=== PATIENT | male | born 1980 | race Caucasian/White ===

== ENCOUNTER 2019-01-13 20:39 | Emergency (ER) | payer OTHER ==
[2019-01-13] MEDS ORDERED: MORPHINE SULFATE 10 MG/ML SOL IV ONE (21:00)
[2019-01-13] MEDS ORDERED: TAMSULOSIN HYDROCHLORIDE 0.4 MG CAP PO SCH (21:00)
[2019-01-13] MEDS ORDERED: KETOROLAC TROMETHAMINE 30 MG/ML SOL IV ONE (21:00)
[2019-01-13 21:09] VITALS: RESP 12; TEMP 98.6
[2019-01-13] MEDS ORDERED: KETOROLAC TROMETHAMINE 30 MG/ML SOL ONE (21:12)
[2019-01-13] MEDS ORDERED: MORPHINE SULFATE 10 MG/ML SOL ONE (21:12)
[2019-01-13] MEDS ORDERED: TAMSULOSIN HYDROCHLORIDE 0.4 MG CAP ONE (21:12)
[2019-01-13 21:24] LABS: BASOPHILS % (AUTO) 1 % (0-3); EOSINOPHILS % (AUTO) 4 % (0-9); HEMATOCRIT 45 % (39-53); HEMOGLOBIN 15.2 gm/dl (13.5-17.7); LYMPHOCYTES % (AUTO) 27.3 % (10-50); MEAN CORPUSCULAR HEMOGLOBIN 29.3 pg (27.0-32.0); MEAN CORPUSCULAR HGB CONC 33.5 gm/dl (32.0-36.0); MEAN CORPUSCULAR VOLUME 87 fL (80-100); MONOCYTES % (AUTO) 9.6 % (0-12)
[2019-01-13 21:36] LABS: APPEARANCE,URINE Cloudy; BILIRUBIN,URINE 1+ (NEGATIVE); COLOR,URINE Yellow; GLUCOSE, URINE (UA) NEGATIVE (NEGATIVE); KETONES,URINE TRACE (NEGATIVE); LEUKOCYTE ESTERASE ,URINE NEGATIVE (NEGATIVE); NITRATE,URINE NEGATIVE (NEGATIVE); OCCULT BLOOD,URINE 3+ (NEG-TRACE); PH,URINE 6.5; UROBILINOGEN,URINE 0.2 (0.2-1.0 EU)
[2019-01-13 21:39] LABS: ALBUMIN 3.7 gm/dl (3.4-5.0); BILIRUBIN,TOTAL 0.2 mg/dl (0.2-1.0); CALCIUM 8.4 mg/dl (8.5-10.1); CREATININE 0.98 mg/dl (0.80-1.30); POTASSIUM 3.7 mMol/L (3.5-5.1); TOTAL PROTEIN 7.2 gm/dl (6.4-8.2)
[2019-01-13 21:40] LABS: CARBON DIOXIDE 30.8 mEq/L (21-32)
[2019-01-13 21:41] LABS: ICTOTEST,URINE NEGATIVE (NEGATIVE)
[2019-01-13 21:48] LABS: BACTERIA 1+ (< 1+); CRYSTALS NEGATIVE (0-3 AVE/HPF); EPITHELIAL CELLS 0-2 (SQUAMOUS); RBC,URINE 40-50 (0-3AV/HPF); WBC,URINE 0-3 (0-5AV/HPF)
[2019-01-13] MEDS ORDERED: APAP/HYDROCODONE 1 EACH TABLET PO ONE (22:05)
[2019-01-13] MEDS ORDERED: APAP/HYDROCODONE 1 EACH TABLET ONE (22:11)
[2019-01-13 22:29] VITALS: BP 122/81; PULSE 72; O2SAT 96
== END 2019-01-13 22:20 | disposition home or self-care (01) | DRG 392 ==
LOC: ED 20:39
DX: R10.9 Unspecified abdominal pain (principal); N20.0 Calculus of kidney; R31.9 Hematuria, unspecified
CPT/HCPCS: 36415; 80053; 81001; 85025; 96374; 96375; 99283; 99291; J1885; J2270; A9270-GY

== ENCOUNTER 2019-01-22 22:56 | Emergency (ER) | payer OTHER ==
[2019-01-22] MEDS ORDERED: SODIUM CHLORIDE 0.9% 1000ML 1,000 ML IV ONE (23:10)
[2019-01-22] MEDS ORDERED: ONDANSETRON HCL 4 MG/2 ML SOL IV ONE (23:10)
[2019-01-22] MEDS ORDERED: HYDROMORPHONE HCL 2 MG/ML SOL IV ONE (23:11)
[2019-01-22] MEDS ORDERED: HYDROMORPHONE 1 MG/ML SYRINGE ONE (23:16)
[2019-01-22] MEDS ORDERED: ONDANSETRON HCL 4 MG/2 ML SOL ONE (23:16)
[2019-01-22 23:22] LABS: BASOPHILS % (AUTO) 1 % (0-3); EOSINOPHILS % (AUTO) 8 % (0-9); HEMATOCRIT 44 % (39-53); HEMOGLOBIN 14.9 gm/dl (13.5-17.7); LYMPHOCYTES % (AUTO) 35.7 % (10-50); MEAN CORPUSCULAR HEMOGLOBIN 29.4 pg (27.0-32.0); MEAN CORPUSCULAR VOLUME 87 fL (80-100); MONOCYTES % (AUTO) 9.6 % (0-12); NEUTROPHILS % (AUTO) 45.7 % (37-80)
[2019-01-22 23:26] LABS: ALBUMIN 3.4 gm/dl (3.4-5.0); BILIRUBIN,TOTAL 0.2 mg/dl (0.2-1.0); CREATININE 1.04 mg/dl (0.80-1.30); TOTAL PROTEIN 6.8 gm/dl (6.4-8.2)
[2019-01-22 23:29] VITALS: RESP 16; TEMP 97.2
[2019-01-22 23:31] LABS: CALCIUM 8.4 mg/dl (8.5-10.1); CARBON DIOXIDE 29.1 mEq/L (21-32); POTASSIUM 3.7 mMol/L (3.5-5.1)
[2019-01-23 00:27] LABS: APPEARANCE,URINE Clear; BILIRUBIN,URINE NEGATIVE (NEGATIVE); COLOR,URINE Orange; GLUCOSE, URINE (UA) TRACE (NEGATIVE); KETONES,URINE TRACE (NEGATIVE); LEUKOCYTE ESTERASE ,URINE NEGATIVE (NEGATIVE); NITRATE,URINE POSITIVE (NEGATIVE); OCCULT BLOOD,URINE TRACE LYSED (NEG-TRACE)
[2019-01-23] MEDS ORDERED: KETOROLAC TROMETHAMINE 30 MG/ML SOL IV ONE (00:34)
[2019-01-23] MEDS ORDERED: KETOROLAC TROMETHAMINE 30 MG/ML SOL ONE (00:35)
[2019-01-23 00:37] LABS: BACTERIA TRACE (< 1+); CRYSTALS NEGATIVE (0-3 AVE/HPF); EPITHELIAL CELLS 0-1 (SQUAMOUS); WBC,URINE 0-2 (0-5AV/HPF)
[2019-01-23] MEDS ORDERED: CEPHALEXIN 250 MG/5 ML BOTTLE PO ONE (01:21)
[2019-01-23] MEDS ORDERED: CEPHALEXIN 250 MG/5 ML BOTTLE ONE (01:22)
[2019-01-23 01:48] VITALS: BP 120/82; PULSE 60; O2SAT 95
== END 2019-01-23 01:36 | disposition home or self-care (01) | DRG 694 ==
LOC: ED 22:56
DX: N20.0 Calculus of kidney (principal); N20.1 Calculus of ureter
CPT/HCPCS: 74176; 80053; 81001; 85025; 96365; 96374; 96375; 99283; 99284; J1885; J2405; A9270-GY; J1170

== ENCOUNTER 2019-02-12 22:29 | Emergency (ER) | payer OTHER ==
[2019-02-12 22:32] VITALS: TEMP 98.9
[2019-02-12] MEDS ORDERED: KETOROLAC TROMETHAMINE 30 MG/ML SOL IV ONE (22:55)
[2019-02-12] MEDS ORDERED: FENTANYL 100MCG/2ML SOL IV ONE (22:55)
[2019-02-12] MEDS ORDERED: ONDANSETRON HCL 4 MG/2 ML SOL IV ONE (23:17)
[2019-02-12] MEDS ORDERED: ONDANSETRON HCL 4 MG/2 ML SOL ONE (23:18)
[2019-02-12] MEDS ORDERED: KETOROLAC TROMETHAMINE 30 MG/ML SOL ONE (23:18)
[2019-02-12 23:19] LABS: BASOPHILS % (AUTO) 1 % (0-3); EOSINOPHILS % (AUTO) 8 % (0-9); HEMATOCRIT 47 % (39-53); HEMOGLOBIN 15.4 gm/dl (13.5-17.7); LYMPHOCYTES % (AUTO) 33.5 % (10-50); MEAN CORPUSCULAR HEMOGLOBIN 28.4 pg (27.0-32.0); MEAN CORPUSCULAR HGB CONC 32.8 gm/dl (32.0-36.0); MEAN CORPUSCULAR VOLUME 87 fL (80-100); MONOCYTES % (AUTO) 7.7 % (0-12); NEUTROPHILS % (AUTO) 49.8 % (37-80)
[2019-02-12] MEDS ORDERED: FENTANYL 100MCG/2ML SOL ONE (23:19)
[2019-02-12 23:28] LABS: CALCIUM 8.5 mg/dl (8.5-10.1); CARBON DIOXIDE 30.2 mEq/L (21-32); CREATININE 0.94 mg/dl (0.80-1.30); POTASSIUM 4.2 mMol/L (3.5-5.1)
[2019-02-12] MEDS ORDERED: SODIUM CHLORIDE 0.9% 1000ML 1,000 ML IV SCH ×2 (23:30)
[2019-02-13 02:05] VITALS: BP 138/88; PULSE 61; RESP 18; O2SAT 97
== END 2019-02-13 02:35 | disposition home or self-care (01) | DRG 103 ==
LOC: ED 22:29
DX: G43.909 Migraine, unspecified, not intractable, without status migrainosus (principal)
CPT/HCPCS: 80048; 85025; 96365; 96366; 96374; 96375; 99283; 99285; J1885; J2405; J3010